=== PATIENT | female | born 1995 | race African-American/Black ===

== ENCOUNTER 2020-09-19 15:33 | Emergency (ER) | payer MEDICAID, SELFPAY ==
[2020-09-19 15:34] VITALS: BP 128/83; PULSE 85; RESP 18; TEMP 36.4; O2SAT 100; BMI 37.2
--- NOTE | 2020-09-19 15:44 | EKG12_ITS ---
Test Reason : CP Blood Pressure : / mmHG Vent. Rate : 079 BPM Atrial Rate : 079 BPM P-R Int : 174 ms QRS Dur : 078 ms QT Int : 388 ms P-R-T Axes : 070 048 049 degrees QTc Int : 444 ms Normal sinus rhythm Normal ECG Confirmed by YOVANI MALDONADO, GELACIO ([id number]), technical editor ETHAN BERMEO ([id number]) on 09/21/2020 11:33:18 AM Referred By: CL Confirmed By:GELACIO PINA MD
--- NOTE | 2020-09-19 15:50 | ED.DCSUM_ITS ---
History of Present Illness Chief Complaint: Shortness of Breath Informant: Patient Narrative: 24-year-old female with no significant past medical history presents with concern for chest pain or shortness of breath. States began approximate 30 minutes ago. States that the pain is sharp and left-sided. Nonradiating. States that she is slightly short of breath. Denies any fever, chills, cough, nausea, vomiting, diaphoresis. States that she has tingling in her bilateral hands. Past Medical History - Allergies and Home Meds Allergies/Adverse Reactions: Allergies acetaminophen [From Vicodin] Allergy (Verified 09/19/20 15:40) Angioedema codeine Allergy (Verified 09/19/20 15:40) Angioedema hydrocodone [From Vicodin] Allergy (Verified 09/19/20 15:40) Angioedema Prior records reviewed: Yes Past Medical History: None Surgical History: no surgical history Lives: Alone Smoking Status: Never smoker Alcohol: None Drugs: None Review of Systems General: Denies: Chills, Fever, Sweats Eyes: Denies: Visual changes - bilaterally, Diplopia ENT: Denies: Rhinorrhea, Sore throat Cardiovascular: Reports: Chest pain. Denies: Palpitations Respiratory: Reports: Dyspnea. Denies: Cough, Dyspnea on exertion Gastrointestinal: Denies: Abdominal pain, Nausea, Vomiting, Diarrhea, Melena, Hematochezia Genitourinary: Denies: Dysuria, Hematuria, Frequency Musculoskeletal: Denies: Back pain, Extremity Pain Skin: Denies: Rash, Wounds Neurological: Denies: Headache, Weakness, Numbness Physical Exam Vital Signs/Narrative: Vital Signs Temp Pulse Resp BP Pulse Ox 09/19/20 15:34 97.5 F L 85 18 128/83 H 100 Inital Vital Signs reviewed: Yes General: Well nourished, Well developed, No Acute Distress Head: Normocephalic, Atraumatic Eyes: Perrl, EOMI ENT: Moist mucous membranes, No rhinorrhea Neck: Supple, Nontender Cardiovascular: Regular rate, Regular rhythm, No murmurs Respiratory: No distress, CTA bilaterally, Chest nontender Abdomen: Soft, Nontender, Nondistended, Normal bowel sounds Back: Nontender, Normal Inspection Extremities: Nontender, No edema Skin: Normal color, No rash Neurological: Alert, Oriented x3, Cranial nerves II-XII grossly intact, Normal Strength, Normal Sensation Psychological: Normal affect, Normal Mood Diagnostic/Tx/Re-eval Chest X-Ray - ED: 1 View, Read by ED Physician, Read by Radiologist, Normal Clinical Impression(s) from Imaging Studies Chest X-Ray 09/19/20 16:10 IMPRESSION: No acute cardiopulmonary disease. Electronically Signed: Dale Terrell DO at 16:23 EDT Tel [phone], Service support , Chest CTA 09/19/20 16:39 IMPRESSION: 1. No evidence of pulmonary embolus. 2. No aortic dissection or aneurysm. 3. Patchy nodular densities in the right upper right middle and bilateral lower lobes. It is uncertain whether these are infiltrative or represent ill-defined masses. Repeat CT in 6-12 months is recommended to confirm stability. Electronically Signed: Dale Terrell DO at 17:24 EDT Tel [phone], Service support , Laboratory Data 09/19/20 09/19/20 09/19/20 16:00 16:00 16:00 WBC 6.4 RBC 5.15 Hgb 13.4 Hct 42.7 MCV 82.9 MCH 26.0 L MCHC 31.4 L RDW Std Deviation 41.0 RDW Coeff of Jagdeep 13.5 Plt Count 290 MPV 10.7 Immature Gran % (Auto) 0.300 Neut % (Auto) 47.0 Lymph % (Auto) 45.1 H [place] % (Auto) 7.1 Eos % (Auto) 0.3 Baso % (Auto) 0.2 Absolute Neuts (auto) 3.0 Absolute Lymphs (auto) 2.88 Nucleated RBC % 0 D-Dimer Quant (PE/DVT) 0.77 H* Sodium 137 Potassium 3.3 L Chloride 105 Carbon Dioxide 24.0 Anion Gap 8 BUN 10 Creatinine 0.82 Estim Creat Clear Calc 82.23 Est GFR (MDRD) Af Amer 108 Est GFR (MDRD) Non-Af 89 BUN/Creatinine Ratio 12.2 Glucose 104 Calcium 9.1 Magnesium 2.1 Troponin I < 0.015 - Rhythm Strip Rhythm Strip: Sinus Rhythm Rate: 79 Ectopy: None - EKG Initial EKG Interpretation: Sinus Rhythm - Normal sinus rhythm at 79 bpm. CA interval of 174 ms. QTC of 444 ms. No evidence of ST elevation or depression at this time. - Medical Decision Making Patient appears well and nontoxic. Vital signs within normal limits. Chest x- ray interpreted by myself shows no evidence of infiltrate or cardiomegaly. Radiology concurs. Elevated D-dimer. CTA was done which shows no pulmonary embolism however does show small nodular densities. Recommend CT within the next 6 to 12 months to confirm resolution. Patient was made aware of this finding. She will be giving given family practice follow-up as well as doxycycline. Patient concerned about Covid and will be tested but does not wish to wait on the results. Patient also states that she intermittently uses an inhaler will given this is a refill. Asked return for new or worsening symptoms. Patient agreeable and stable time of discharge. Impression: 1. Chest pain 2. Dyspnea 3. Pulmonary nodular densities ED Disposition - Plan for ED Patient: Disposition: Home or Assisted Living Instructions: ED Chest Pain, Uncertain Cause, ED Dyspnea, ED Pulmonary Nodule, Solitary Prescriptions: Doxycycline 100 mg PO BID #14 capsule Prescription Printed Albuterol Inhaler [Ventolin Hfa] 1 - 2 puff INHALATION Q4H PRN PRN #1 inhaler PRN Reason: Wheezing Prescription Printed Referrals: Care Physician,No Primary [Primary Care Provider] - 2 Days Additional Instructions: CT showed non-specific pulmonary nodules. Recommend repeat chest CT in 6-12 months to ensure resolution.
--- NOTE | 2020-09-19 16:10 | RAD_ITS ---
STUDY: X-RAY CHEST REASON FOR EXAM: Female, 24 years old. Chest pain. TECHNIQUE: Single AP portable view of the chest. COMPARISON: None. FINDINGS: Limited inspiratory effort. Lungs are clear. There is no demonstrated pleural abnormality. Normal size heart. Normal mediastinum and yulia. Normal visualized pulmonary arteries. Normal visualized aortic arch and descending thoracic aorta. Normal visualized thoracic spine. Normal visualized ribs, clavicles, and shoulders. There is no demonstrated abnormality of the visualized soft tissue structures of the upper abdomen. RAD/Chest 1 View (Portable) IMPRESSION: No acute cardiopulmonary disease. Electronically Signed: Dale Terrell DO at 16:23 EDT Tel [phone], Service support ,
[2020-09-19 16:22] LABS: Absolute Lymphocyte Count 2.88 X10^3/uL (0.83-4.51); Basophil# 0.01 X10^3/uL; Basophil% 0.2 % (0-1); Eosinophil# 0.02 X10^3/uL; Eosinophils% 0.3 % (0-5); Hematocrit 42.7 % (37-47); Hemoglobin 13.4 g/dL (12.0-15.0); Lymphocyte # 2.88 X10^3/ul (0.83-4.51); Lymphocyte % 45.1 % (19-41); Mean Corp Hgb Conc 31.4 g/dL (32-36); Mean Corpuscular Volume 82.9 fL (81-99); Mean Platelet Vol. 10.7 fl (6.2-12.0); Monocyte# 0.45 X10^3/uL; Monocyte% 7.1 % (0-10); NRBC Flagged by Analyzer 0 % (0-5); Platelet Count 290 K/mm3 (150-450); RBC Distribution Width CV 13.5 % (11.6-14.6); Red Blood Count 5.15 M/mm3 (4.2-5.4); White Blood Count 6.4 K/mm3 (4.4-11.0)
[2020-09-19 16:32] LABS: D-Dimer Quantitative (DVT/PE) 0.77 FEU/ug/m (0.27-0.49)
[2020-09-19 16:37] LABS: Anion Gap 8 (5-15); BUN 10 mg/dL (7-18); BUN/Creat Ratio 12.2 RATIO (10-20); Calcium,Total 9.1 mg/dL (8.5-10.1); Chloride 105 mmol/L (98-107); Creatinine, Serum 0.82 mg/dL (0.55-1.02); EST Glomerular Filtration Rate 89 mL/min (>60); Est Glom Filt Rate - Afr Amer 108 mL/min (>60); Estimated Creatinine Clearance 82.23 ml/min; Glucose 104 mg/dL (74-106); Magnesium 2.1 mg/dL (1.6-2.6); Potassium 3.3 mmol/L (3.5-5.1); Sodium Level 137 mmol/L (136-145)
--- NOTE | 2020-09-19 16:39 | CT_ITS ---
STUDY: CTA CHEST REASON FOR EXAM: Female, 24 years old. Chest pain and dyspnea. RADIATION DOSAGE (If Supplied By Facility): CTDIvol = ( 13.65 ) mGy, DLP = ( 463.03 ) mGycm TECHNIQUE: The examination was performed with the intravenous administration of IV 100mL Isovue-370. Post-processing of the angiographic images was performed, with multiplanar reformation and 3D reconstruction. Individualized dose optimization techniques were used for this CT. COMPARISON: Chest, 09/19/2020. FINDINGS: Normal enhancement of the main pulmonary artery and right and left pulmonary arteries. Normal enhancement of the bilateral peripheral pulmonary arteries. There is no demonstrated pulmonary embolism. Normal thoracic aorta and visualized great vessels. There is no demonstrated aortic dissection. Normal heart and pericardium. There is minimal soft tissue in the anterior mediastinum thought to be residual thymic tissue. The mediastinum and is otherwise unremarkable. Normal hilar regions. Normal visualized trachea and bronchi. The lungs are well expanded. There is a 5 mm pleural-based focus in the right upper lobe best seen on image 146 using lung windows. There is a smaller nodular intraparenchymal density in the right upper lobe as seen on image 150. There is patchy consolidation in the lateral right middle lobe along the oblique fissure. Patchy pleural-based densities are also seen posteriorly in both lower lobes. Normal pleura. Normal chest wall structures. Normal osseous structures. Normal visualized upper abdomen. CT/CTA Chest W/WO Contrast IMPRESSION: 1. No evidence of pulmonary embolus. 2. No aortic dissection or aneurysm. 3. Patchy nodular densities in the right upper right middle and bilateral lower lobes. It is uncertain whether these are infiltrative or represent ill-defined masses. Repeat CT in 6-12 months is recommended to confirm stability. Electronically Signed: Dale Terrell DO at 17:24 EDT Tel [phone], Service support ,
[2020-09-19 17:48] VITALS: PULSE 87; RESP 18
[2020-09-19 18:15] VITALS: BP 130/91; PULSE 88; RESP 18; O2SAT 99
--- NOTE | 2020-09-19 20:46 | ED.RN ---
THIS RN SPOKE WITH PT AND NOTIFIED HER OF POSITIVE COVID RESULTS. PT REQUESTED A WORK NOTE BE MADE FOR A ELOY COSTA TO ORDER TAKERS SUPERVISOR AT THE TRIAGE DESK SOMETIME TOMORROW 09/20
== END 2020-09-19 18:17 | disposition home or self-care (01) ==
PROVIDERS: Emergency Provider Emergency Medicine
DX: R07.9 Chest pain, unspecified (principal); R06.00 Dyspnea, unspecified; J98.4 Other disorders of lung
CPT/HCPCS: 71045; 71275; 80048; 83735; 84484; 85025; 85379; 87426; 93005; 99285; Q9967; A4216